=== PATIENT | female | born 1950 | race Caucasian/White ===

== ENCOUNTER 2017-12-28 10:42 | Inpatient (IN) | payer MEDICARE ==
[~2017-12-28] VITALS: Ht 162.6 cm; Wt 116.6 kg
[2017-12-28] MEDS ORDERED: VANCOMYCIN 1GM/NS 250 ML 250 ML IV STA (10:52)
[2017-12-28] MEDS ORDERED: PIPER-TAZ 3.375 GM 50 ML IV STA (10:52)
--- NOTE | 2017-12-28 11:32 | Diagnostic Imaging Report ---
PROCEDURE: A single AP view of the chest. COMPARISON: None. INDICATIONS: INFECTED LEFT FOOT FINDINGS: Lines/tubes: None. Lungs: The lungs are well inflated and clear. There is no evidence of pneumonia or pulmonary edema. Pleura: There is no pleural effusion or pneumothorax. Heart and mediastinum: Normal heart size. Mild tortuosity of the thoracic aorta. Bones: No acute bony abnormality. Multilevel degenerative changes of the thoracic spine. IMPRESSION: 1. No acute cardiopulmonary disease. Dictated by: Diaz Daivs M.D. on 12/28/2017 at 11:35 Electronically approved by: Diaz Davis M.D. on 12/28/2017 at 11:35
[2017-12-28 11:33] LABS: BASOPHILS % 0.4 % (0.0-1.0); EOSINOPHILS # (AUTO) 0.1 (0.0-0.4); EOSINOPHILS % 1.4 % (0.0-6.0); HEMATOCRIT 40.7 % (34.2-44.1); HEMOGLOBIN 13.7 g/dL (12.0-16.0); LYMPHOCYTES # (AUTO) 1.6 (1.0-3.2); LYMPHOCYTES % 18.5 % (18.0-39.1); MEAN CORPUSCULAR HEMOGLOBIN 30.4 pg (28-32); MEAN CORPUSCULAR HGB CONC 33.7 g/dL (31-35); MEAN CORPUSCULAR VOLUME 90.4 fL (81-99); MONOCYTES # (AUTO) 0.7 (0.2-0.8); MONOCYTES % 7.8 % (4.4-11.3); NEUTROPHILS % 71.7 % (38.7-80.0); PLATELET COUNT 223 x10e3/uL (140-360)
[2017-12-28 11:41] LABS: INR 1.11; PROTHROMBIN TIME 13.5 seconds (11.9-14.5)
[2017-12-28 11:42] LABS: PARTIAL THROMBOPLASTIN TIME 30.3 seconds (23.8-35.5)
[2017-12-28 11:50] LABS: ALBUMIN 3.8 g/dL (3.5-5.0); ANION GAP 12.4 mmol/L (8-16); CALCIUM 9.9 mg/dL (8.4-10.2); CREATININE, SERUM 1.6 mg/dL (0.57-1.11); POTASSIUM 4.4 mmol/L (3.5-5.1)
[2017-12-28] MEDS ORDERED: SODIUM CHLORIDE FLUSH 10 ML SYR INJ PRN (12:30)
[2017-12-28] MEDS ORDERED: ONDANSETRON HCL INJ 2 MG/ML VIAL IV PRN (12:30)
--- OUTSIDE RECORDS SUMMARY | 2017-12-28 13:03 | XMS REPORT ---
Author Author [facility] Address Unknown Phone Unavailable Care Team Providers Care Pre K Teacher Name Role Phone ANTON LOWE Unavailable Unavailable Problems This patient has no known problems. Allergies, Adverse Reactions, Alerts This patient has no known allergies or adverse reactions. Medications This patient has no known medications. Results Test Description Test Time Test Comments Text Results Atomic Results Result Comments CHEST SINGLE (PORTABLE) 2017-12-28 11:35:00 [place] [address] Patient Name: CHINO MOORE MR #: [id number] : 1950 Age/Sex: 67 /F Req #: [id number] Adm Physician: Ordered by: NEY SKINNER CERTIFED REFRIGERATION OPERATOR Report #: [id number] Location: ER Room/Bed: Procedure: [id number] DX/CHEST SINGLE (PORTABLE) Exam Date: Exam Time: 1112 REPORT STATUS: Signed PROCEDURE: A single AP view of the chest. COMPARISON: None. INDICATIONS: INFECTED LEFT FOOT FINDINGS: Lines/tubes: None. Lungs: The lungs are well inflated and clear. There is no evidence of pneumonia or pulmonary edema. Pleura: There is no pleural effusion or pneumothorax. Heart and mediastinum: Normal heart size. Mild tortuosity of the thoracic aorta. Bones: No acute bony abnormality. Multilevel degenerative changes of the thoracic spine. IMPRESSION: 1. No acute cardiopulmonary disease. Dictated by: Forest Davis M.D. on 2017 at 11:35 Electronically approved by: Forest Davis M.D. on 2017 at 11:35 Dictated By: FOREST DAVIS MD 1135 Transcribed By: KEKE on 12/28/17 1135 COPY TO: NEY SKINNER NP
[2017-12-28] MEDS: PIPERACILLIN/TAZO 2.25 GM 50 ML IV SCH ×2 (13:06→20:54)
[2017-12-28 15:23] LABS: CHOL/HDL RATIO 3.6 (3.0-3.6)
--- NOTE | 2017-12-28 15:26 | History and Physical ---
PRIMARY CARE PHYSICIAN: Dr. Rizo CHIEF COMPLAINT: Foot infection. HISTORY OF PRESENT ILLNESS: This is a 67-year-old woman with a history of diabetes mellitus, now developing left foot redness and pain. She went to her primary care doctor and was given Bactrim and another medication; but due to worsening of symptoms, she came to the hospital for further evaluation and management. PAST MEDICAL HISTORY 1. Diabetes mellitus. 2. Hypertension. 3. Hyperlipidemia. 4. Chronic kidney disease, stage unknown. 5. Cigarette history. PAST SURGICAL HISTORY 1. Cholecystectomy. 2. Tonsillectomy. ALLERGIES: PER ELECTRONIC MEDICAL RECORD. FAMILY AND SOCIAL HISTORY: The patient is . She has no children. Occasional alcohol. Quit cigarettes in 1991. MEDICATIONS: Per electronic medical record. REVIEW OF SYSTEMS: Denies any dizziness or chest pain. PHYSICAL EXAMINATION VITAL SIGNS: Reviewed. GENERAL: A tired-appearing woman resting in bed. HEENT: Anicteric. Pupils are responsive to light. No oral lesions. CARDIOVASCULAR: Normal S1 and S2. LUNGS: Moderate breath sounds. ABDOMEN: Soft, nontender, nondistended. EXTREMITIES: Right side appears normal. On the left foot, she has erythema, tenderness and warmth to the foot. All toes are erythematous and warm with edema. There is a small ulcer on the 5th toe dorsal surface. SKIN: Dry. PSYCHIATRIC: Flat affect. LABS: Reviewed. MEDICATIONS: Reviewed. ASSESSMENT: A 67-year-old woman. 1. Left foot cellulitis. 2. Diabetes mellitus, type 2. 3. Chronic kidney disease/diabetic nephropathy. 4. Hyperlipidemia. 5. History of cigarette use. 6. Hypertension. PLAN 1. Obtain hemoglobin A1c and lipid panel. 2. Change vancomycin to IV clindamycin. 3. Continue IV Zosyn. 4. Use Lovenox and Pepcid for prophylaxis. 5. Follow up cultures. Job#: [id number]
[2017-12-28] MEDS: CLINDAMYCIN 300MG 50 ML IV SCH ×2 (16:10→21:36)
[2017-12-28] MEDS: FAMOTIDINE 20 MG TAB PO SCH (16:10)
[2017-12-28 16:13] VITALS: BP 133/80
[2017-12-28 16:41] VITALS: BP 138/80
[2017-12-28] MEDS: ENOXAPARIN SOD INJ 40 MG/0.4 ML SYR SC SCH (16:45)
[2017-12-28] MEDS ORDERED: SODIUM CHLORIDE 0.9% 250ML 250 ML ONE (17:24)
[2017-12-28 20:00] VITALS: BP 137/63
[2017-12-28 20:40] LABS: CLARITY,URINE CLEAR (CLEAR); COLOR,URINE YELLOW (YELLOW)
[2017-12-28 20:41] LABS: BILIRUBIN,URINE NEGATIVE (NEGATIVE); EPITHELIAL CELLS,URINE MANY /LPF; KETONES,URINE NEGATIVE (NEGATIVE); LEUKOCYTE ESTERASE ,URINE NEGATIVE (NEGATIVE); MUCUS,URINE FEW (RARE); NITRITE,URINE NEGATIVE (NEGATIVE); PROTEIN,URINE DIPSTICK NEGATIVE (NEGATIVE); RBC,URINE 0-5 /HPF (0-5); URINE UROBILINOGEN 0.2 mg/dL (0.2 - 1); WBC,URINE (MAN) 0-5 /HPF (0-5)
[2017-12-28] MEDS: PREGABALIN 75 MG CAP PO SCH (21:36)
[2017-12-28 22:46] VITALS: BP 137/63
[2017-12-29] VITALS (7 sets, daily range): BP systolic 125–158; BP diastolic 58–88
[2017-12-29] MEDS: PIPERACILLIN/TAZO 2.25 GM 50 ML IV SCH ×3 (05:21→22:00)
[2017-12-29 07:02] LABS: BASOPHILS % 0.7 % (0.0-1.0); EOSINOPHILS # (AUTO) 0.2 (0.0-0.4); EOSINOPHILS % 2.6 % (0.0-6.0); HEMOGLOBIN 12.6 g/dL (12.0-16.0); LYMPHOCYTES # (AUTO) 1.6 (1.0-3.2); LYMPHOCYTES % 26.7 % (18.0-39.1); MEAN CORPUSCULAR HGB CONC 34.1 g/dL (31-35); MEAN CORPUSCULAR VOLUME 90.9 fL (81-99); MONOCYTES # (AUTO) 0.7 (0.2-0.8); MONOCYTES % 11.6 % (4.4-11.3); NEUTROPHILS # (AUTO) 3.4 (2.1-6.9); NEUTROPHILS % 58.1 % (38.7-80.0); PLATELET COUNT 187 x10e3/uL (140-360); RED BLOOD COUNT 4.07 x10e6/uL (3.6-5.1)
[2017-12-29] MEDS: CLINDAMYCIN 300MG 50 ML IV SCH ×3 (07:08→22:00)
[2017-12-29 07:25] LABS: ANION GAP 12.1 mmol/L (8-16); CALCIUM 9.4 mg/dL (8.4-10.2); CREATININE, SERUM 1.59 mg/dL (0.57-1.11); POTASSIUM 4.1 mmol/L (3.5-5.1)
[2017-12-29] MEDS: FAMOTIDINE 20 MG TAB PO SCH ×2 (07:30→16:30)
[2017-12-29] MEDS ORDERED: VANCOMYCIN 500MG/NS 0.9% 100ML 100 ML IV SCH (09:00)
[2017-12-29] MEDS ORDERED: JANUVIA100 MG PO (10:54)
[2017-12-29] MEDS ORDERED: DIOVAN80 MG PO (10:54)
[2017-12-29] MEDS ORDERED: PANTOPRAZOLE SO40 MG PO (10:54)
[2017-12-29] MEDS ORDERED: TOPIRAMATE100 MG PO (10:54)
[2017-12-29] MEDS ORDERED: VITAMIN D1000 UNI1 PO (11:03)
[2017-12-29] MEDS ORDERED: LYRICA75 MG PO (11:03)
[2017-12-29] MEDS ORDERED: CALTRATE PLUS1 EACH PO (11:03)
[2017-12-29] MEDS ORDERED: BUPROPION HCL150 MG PO (11:03)
[2017-12-29] MEDS ORDERED: HUMALOG100 UNIT/1 (11:03)
[2017-12-29] MEDS ORDERED: ASPIR 8181 MG PO (11:03)
[2017-12-29] MEDS ORDERED: [UNRECOGNIZED DRUG - OTHER] PO (11:03)
[2017-12-29] MEDS ORDERED: PRAVASTATIN SOD40 MG PO (11:03)
[2017-12-29] MEDS ORDERED: SODIUM BICARBO650 MG PO (11:03)
[2017-12-29] MEDS: IBUPROFEN 600 MG TAB PO PRN ×2 (15:49→22:13)
[2017-12-29] MEDS ORDERED: DEXTROSE 50% SYRINGE 50 ML IV PRN (16:45)
[2017-12-29] MEDS ORDERED: PANTOPRAZOLE SOD 40 MG TABEC PO SCH (17:00)
[2017-12-29] MEDS: VALSARTAN 80 MG TAB PO SCH (17:15)
[2017-12-29] MEDS: ENOXAPARIN SOD INJ 40 MG/0.4 ML SYR SC SCH (17:15)
[2017-12-29] MEDS: TOPIRAMATE 100 MG TAB PO SCH (17:15)
[2017-12-29] MEDS: SODIUM BICARBONATE 650 MG TAB PO SCH (17:15)
--- NOTE | 2017-12-29 17:26 | Progress Note ---
DATE: December 29, 2017, Sunday, at 1630. MEDICINE PROGRESS NOTE OVERNIGHT: No acute events. REVIEW OF SYSTEMS: Patient denies any chest pain, shortness of breath, nausea, vomiting, diarrhea. Patient reports 5 over 10 aching pain to left lower extremity and shortness of breath on exertion. OBJECTIVE VITAL SIGNS: T 96.9, P 70, respirations 20, BP 148/67. GENERAL APPEARANCE: This is a tired-appearing female lying supine in bed. HEENT: Normocephalic, PERRLA, oral mucosa moist and intact, nares patent. NECK: Without JVD. CARDIOVASCULAR: S1 and S2 appreciated without clicks, murmurs or rubs. LUNGS: Moderate breath sounds. ABDOMEN: Soft, nontender and nondistended. EXTREMITIES: Moves all extremities. On the left foot, she has erythema, tenderness, and warmth to erythematous area. All toes are erythematous. Trace edema to pedal area. There is a white lesion to the 5th toe medial surface with a small ulcer on the dorsal surface. Reports tenderness to palpation. SKIN: Dry. PSYCHIATRIC: Normal affect. LABS: Reviewed. MEDICATIONS 1. Ibuprofen 600 mg twice daily p.r.n. 2. Clindamycin IV q.8. 3. Zosyn q.8 h. IV. 4. Lyrica 75 mg nightly. 5. Lovenox 40 mg at 1700 subcutaneous. 6. Pepcid 20 mg. 7. Humalog a.c. and nightly per sliding scale. 8. Bupropion 300 mg p.o. daily. 9. Vitamin D3, 2000 units once by mouth daily. 10. PRN Zofran. 11. Topamax 100 mg p.o. b.i.d. 12. Valsartan 80 mg p.o. daily. 13. Pravastatin sodium 40 mg p.o. nightly. ASSESSMENT AND PLAN: This is a 67-year-old woman with 1. Left foot cellulitis. Will continue IV antibiotics. 2. Diabetes mellitus type 2. Sliding scale and medications as appropriate. Hemoglobin A1c noted at 6. Triglyceride slightly elevated at 164, cholesterol within normal values. 3. Chronic kidney disease/diabetic nephropathy. Will continue to monitor while the patient receives IV antibiotics. 4. Hyperlipidemia. Will continue her statin. 5. History of cigarette use. Discussed briefly today. Patient counseled prior. 6. Hypertension. Will resume ARB. 7. Prophylaxis. Lovenox and Pepcid. 8. Disposition. We will continue IV antibiotics despite negative culture findings and monitor patient's progression. Dictated by: Sallie Leavitt NP Job#: [id number] EV
[2017-12-29] MEDS: PRAVASTATIN 20 MG TAB PO SCH (21:00)
[2017-12-29] MEDS: PREGABALIN 75 MG CAP PO SCH (21:00)
[2017-12-29] MEDS: INSULIN LISPRO 100 UNIT/1 ML 3ML VIAL SQ SCH (21:00)
[2017-12-30] VITALS (8 sets, daily range): BP systolic 105–207; BP diastolic 56–84
[2017-12-30] MEDS: CLINDAMYCIN 300MG 50 ML IV SCH ×3 (05:25→21:07)
[2017-12-30] MEDS: PIPERACILLIN/TAZO 2.25 GM 50 ML IV SCH ×3 (05:25→21:07)
[2017-12-30] MEDS: FAMOTIDINE 20 MG TAB PO SCH (07:30)
[2017-12-30] MEDS: INSULIN LISPRO 100 UNIT/1 ML 3ML VIAL SQ SCH ×4 (07:42→21:00)
[2017-12-30] MEDS: VALSARTAN 80 MG TAB PO SCH (08:10)
[2017-12-30] MEDS: SODIUM BICARBONATE 650 MG TAB PO SCH ×2 (08:12→17:02)
[2017-12-30] MEDS: BUPROPION HCL 150 MG TABCR PO SCH (08:12)
[2017-12-30] MEDS: TOPIRAMATE 100 MG TAB PO SCH ×2 (08:12→17:02)
[2017-12-30] MEDS: CHOLECALCIFEROL 1,000 UNIT TAB PO SCH (08:12)
[2017-12-30] MEDS ORDERED: ASPIRIN 81 MG CHEW TAB PO SCH (09:00)
[2017-12-30] MEDS ORDERED: PREGABALIN 75 MG CAP PO SCH (09:00)
[2017-12-30] MEDS ORDERED: METOPROLOL TARTRATE INJ 1 MG/ML VIAL IV PRN (15:00)
--- NOTE | 2017-12-30 15:15 | Progress Note ---
DATE: December 30, 2017 TIME: 1430 OVERNIGHT: No acute events. REVIEW OF SYSTEMS: Patient denies chest pain, shortness of breath, nausea, vomiting, diarrhea, dizziness. Patient denies pain at this time and indicates shortness of breath on exertion is improving. PHYSICAL EXAMINATION VITAL SIGNS: T 96, P 69, respirations 18, BP 158/67, O2 sat on room air 100%. GENERAL: This is a tired-appearing female lying supine in bed. HEENT: Normocephalic. PERRLA. Oral mucosa moist and intact. Nares patent. NECK: Without JVD. Supple. CARDIOVASCULAR: S1 and S2 auscultated without clicks, murmurs or rubs. Regular rate and rhythm noted. LUNGS: Bilateral breath sounds. CTA with fair excursion. ABDOMEN: Soft, nontender and not distended. EXTREMITIES: Moves all 4 extremities on command. On the left foot, she has improving erythema, tenderness and warmth at the erythematous area. All toes are erythematous. Edema to pedal area has resolved. White lesion to 5th toe medial surface with friable lesion surface. Continues to be tender to touch. Additional lateral lesion without change and scaly. SKIN: Dry. PSYCHIATRIC: Normal affect. LABS: Reviewed. MEDICATIONS 1. Clindamycin q.8 h. IV. 2. Topamax 100 mg p.o. b.i.d. 3. Sodium bicarb 650 mg p.o. b.i.d. 4. Vitamin D3 2000 units p.o. daily. 5. Wellbutrin 300 mg p.o. daily. 6. Valsartan 80 mg p.o. daily. 7. Zosyn q.8 h. IV. 8. P.r.n. Motrin. 9. At bedtime pregabalin 75 mg. 10. Prophylactic Lovenox 40 mg subcutaneous at 1700. 11. Humalog per high dose sliding scale a.c. and at night. 12. Protonix once a day before breakfast. 13. P.r.n. D50. 14. Pravastatin 40 mg p.o. at bedtime. 15. P.r.n. Zofran. ASSESSMENT AND PLAN: This is a 67-year-old woman with: 1. Left foot cellulitis: Improving. Will continue intravenous antibiotics. 2. Diabetes mellitus, type 2: Sliding scale adjusted per patient request. Hemoglobin A1c at 6. Triglycerides and cholesterol values again reviewed. 3. Chronic kidney disease with diabetic neuropathy: Will continue to monitor while the patient receives intravenous antibiotics. Will follow up values in the morning. 4. Hyperlipidemia: Continue non-formulary statin. 5. History of cigarette abuse: The patient counseled prior. 6. Hypertension: Resumed yesterday p.m. and today 2nd dose. Consider titration tomorrow if necessary. 7. Prophylaxis: Lovenox and Protonix. Pepcid discontinued at the patient's request. 8. Disposition: We will continue intravenous antibiotics. Monitor vital signs and renal function in a.m. DICTATED BY BALJIT GALDAMEZ NP Job#: [id number] RI
[2017-12-30] MEDS: ENOXAPARIN SOD INJ 40 MG/0.4 ML SYR SC SCH (17:02)
[2017-12-30] MEDS: PREGABALIN 75 MG CAP PO SCH (21:00)
[2017-12-30] MEDS: PRAVASTATIN 20 MG TAB PO SCH (21:00)
[2017-12-30] MEDS: PANTOPRAZOLE SOD 40 MG TABEC PO SCH (21:23)
[2017-12-30] MEDS: IBUPROFEN 600 MG TAB PO PRN (23:09)
[2017-12-31] VITALS (7 sets, daily range): BP systolic 128–161; BP diastolic 56–69
[2017-12-31] MEDS: PIPERACILLIN/TAZO 2.25 GM 50 ML IV SCH ×3 (05:24→21:38)
[2017-12-31] MEDS: CLINDAMYCIN 300MG 50 ML IV SCH ×3 (05:24→21:38)
[2017-12-31 07:08] LABS: ANION GAP 14.8 mmol/L (8-16); CALCIUM 9.6 mg/dL (8.4-10.2); CREATININE, SERUM 1.4 mg/dL (0.57-1.11); POTASSIUM 4.8 mmol/L (3.5-5.1)
--- NOTE | 2017-12-31 07:26 | Progress Note ---
DATE: December 31, 2017 TIME: 6:58 a.m. OVERNIGHT: Elevated blood pressure. REVIEW OF SYSTEMS: Denies any dizziness or chest pain. PHYSICAL EXAMINATION VITAL SIGNS: Reviewed. GENERAL: A tired-appearing woman resting in bed. HEENT: Anicteric. CARDIOVASCULAR: Normal S1 and S2. LUNGS: Moderate breath sounds. ABDOMEN: Soft, nontender and nondistended. EXTREMITIES: She has right-sided appearing and normal left foot. She has erythema, tenderness and warmth of the foot with less erythema compared to previous. Fifth digit has a small ulcer. SKIN: Dry. PSYCHIATRIC: Flat affect. LABS: Reviewed. MEDICATIONS: Reviewed. ASSESSMENT: A 67-year-old woman with: 1. Left foot cellulitis. 2. Diabetes mellitus, type 2. 3. Chronic kidney disease/diabetic nephropathy. 4. Hyperlipidemia. 5. History of cigarette use. 6. Hypertension, uncontrolled. PLAN 1. Add calcium channel stanton. 2. Continue losartan. 3. Continue IV clindamycin and IV Zosyn. 4. Follow up renal function. 5. Hemoglobin A1c is 6, at goal. LDL is 86 and triglycerides 164. 6. All cultures remain negative. 7. Discharge planning. Job#: [id number] TRIXIE
[2017-12-31] MEDS: INSULIN LISPRO 100 UNIT/1 ML 3ML VIAL SQ SCH ×4 (09:04→20:25)
[2017-12-31] MEDS: VALSARTAN 80 MG TAB PO SCH (09:04)
[2017-12-31] MEDS: BUPROPION HCL 150 MG TABCR PO SCH (09:04)
[2017-12-31] MEDS: CHOLECALCIFEROL 1,000 UNIT TAB PO SCH (09:04)
[2017-12-31] MEDS: NIFEDIPINE CR 30 MG TAB PO SCH ×2 (09:04→20:24)
[2017-12-31] MEDS: IBUPROFEN 600 MG TAB PO PRN ×2 (09:04→23:30)
[2017-12-31] MEDS: TOPIRAMATE 100 MG TAB PO SCH ×2 (09:04→17:30)
[2017-12-31] MEDS: SODIUM BICARBONATE 650 MG TAB PO SCH ×2 (09:04→17:30)
[2017-12-31] MEDS ORDERED: SODIUM CHLORIDE 0.9% 250ML 250 ML ONE (14:06)
[2017-12-31] MEDS: ENOXAPARIN SOD INJ 40 MG/0.4 ML SYR SC SCH (17:30)
[2017-12-31] MEDS: PRAVASTATIN 20 MG TAB PO SCH (20:24)
[2017-12-31] MEDS: PREGABALIN 75 MG CAP PO SCH (20:24)
[2018-01-01] VITALS: BP 153/68
[2018-01-01 04:00] VITALS: BP 119/56
[2018-01-01] MEDS: CLINDAMYCIN 300MG 50 ML IV SCH (05:12)
[2018-01-01] MEDS: PIPERACILLIN/TAZO 2.25 GM 50 ML IV SCH (05:58)
[2018-01-01 07:10] VITALS: BP 101/60
[2018-01-01 07:50] VITALS: BP 101/60
[2018-01-01] MEDS ORDERED: CLEOCIN HCL150 MG PO (07:53)
[2018-01-01] MEDS ORDERED: NIFEDIPINE ER30 M1 PO (07:53)
[2018-01-01] MEDS ORDERED: CIPRO500 MG PO (07:53)
[2018-01-01] MEDS: PANTOPRAZOLE SOD 40 MG TABEC PO SCH (08:18)
[2018-01-01] MEDS: NIFEDIPINE CR 30 MG TAB PO SCH (08:19)
[2018-01-01] MEDS: INSULIN LISPRO 100 UNIT/1 ML 3ML VIAL SQ SCH (08:19)
[2018-01-01] MEDS: TOPIRAMATE 100 MG TAB PO SCH (08:19)
[2018-01-01] MEDS: CHOLECALCIFEROL 1,000 UNIT TAB PO SCH (08:19)
[2018-01-01] MEDS: BUPROPION HCL 150 MG TABCR PO SCH (08:19)
[2018-01-01] MEDS: SODIUM BICARBONATE 650 MG TAB PO SCH (08:19)
[2018-01-01] MEDS: VALSARTAN 80 MG TAB PO SCH (08:19)
[2018-01-01] MEDS: IBUPROFEN 600 MG TAB PO PRN (09:21)
== END 2018-01-01 09:46 | disposition home or self-care (01) | DRG 603 ==
LOC: ER 10:42 → ERHOLD 13:01 → MED/SURG3 15:02 → ACU 12-31 11:56 → MED/SURG3 12-31 11:56
PROVIDERS: ADMIT Internal Medicine; ATTEND Internal Medicine
DX: L03.116 Cellulitis of left lower limb (principal); E11.22 Type 2 diabetes mellitus with diabetic chronic kidney disease; I12.9 Hypertensive chronic kidney disease with stage 1 through stage 4 chronic kidney disease, or unspecified chronic kidney disease; N18.9 Chronic kidney disease, unspecified; E78.5 Hyperlipidemia, unspecified; E11.21 Type 2 diabetes mellitus with diabetic nephropathy; Z87.891 Personal history of nicotine dependence; E11.621 Type 2 diabetes mellitus with foot ulcer; L97.521 Non-pressure chronic ulcer of other part of left foot limited to breakdown of skin; E11.40 Type 2 diabetes mellitus with diabetic neuropathy, unspecified; L97.529 Non-pressure chronic ulcer of other part of left foot with unspecified severity; L03.032 Cellulitis of left toe
CPT/HCPCS: 36415; 71045; 80048; 80053; 80061; 81001; 82948; 83036; 83605; 85025; 85610; 85730; 87071; 87205; 93005; 93971; 99284; J1650; J2543; J3370; J7050